=== PATIENT | female | born 1945 | race Caucasian/White ===

== ENCOUNTER → 2016-11-30 | Outpatient (CLI) | payer MEDICARE, BC | LOC: MAMO 14:41 | DX: Z12.31 Encounter for screening mammogram for malignant neoplasm of breast (principal) | CPT/HCPCS: G0202 ==

== ENCOUNTER → 2021-09-03 | Outpatient (CLI) | payer MEDICARE, BC ==
[~2021-09-03] MED LIST: LOSARTAN POTASS50 MG PO; OMNICEF 300 MG300 MG PO
== END ==
LOC: OPSV2 09:30
PROVIDERS: Anesthesiology
DX: Z01.818 Encounter for other preprocedural examination (principal); I10 Essential (primary) hypertension
CPT/HCPCS: 80048; 93005

== ENCOUNTER 2021-09-08 05:35 | Inpatient (IN) | payer MEDICARE, BC ==
[~2021-09-08] VITALS: Ht 162.6 cm; Wt 79.4 kg
[2021-09-08] MEDS ORDERED: NEOMYCIN SULFA500 MG PO (06:39)
[2021-09-08] MEDS ORDERED: METRONIDAZOLE500 MG PO (06:39)
[2021-09-09 07:07] LABS: HEMOGLOBIN 12.5 gm/dl (12.3-15.3); RED BLOOD COUNT 4.12 M/UL (4.00-5.10); WHITE BLOOD COUNT 8.2 K/UL (4.5-11.0)
== END 2021-09-11 15:43 | disposition home or self-care (01) | DRG 331 ==
LOC: OR 05:35 → EDSTATUS 07:30 → OR 07:30 → M/S 14:00 → OR 14:01 → M/S 09-11 15:43
PROVIDERS: ADMIT Surgery
PROC: 0DNU4ZZ Release Omentum, Percutaneous Endoscopic Approach (ICD-10-PCS; 2021-09-08)
PROC: 0DNW4ZZ Release Peritoneum, Percutaneous Endoscopic Approach (ICD-10-PCS; 2021-09-08)
PROC: 0DBF4ZZ Excision of Right Large Intestine, Percutaneous Endoscopic Approach (ICD-10-PCS; principal; 2021-09-08 07:30)
DX: K63.5 Polyp of colon (principal); N18.30 Chronic kidney disease, stage 3 unspecified; I12.9 Hypertensive chronic kidney disease with stage 1 through stage 4 chronic kidney disease, or unspecified chronic kidney disease; M54.59 Other low back pain; E66.9 Obesity, unspecified; Z20.822 Contact with and (suspected) exposure to COVID-19; Z85.038 Personal history of other malignant neoplasm of large intestine; Z88.6 Allergy status to analgesic agent; Z90.49 Acquired absence of other specified parts of digestive tract; Z98.890 Other specified postprocedural states; Z79.899 Other long term (current) drug therapy; Z80.0 Family history of malignant neoplasm of digestive organs; Z82.49 Family history of ischemic heart disease and other diseases of the circulatory system; Z82.61 Family history of arthritis; Z83.3 Family history of diabetes mellitus; Z80.3 Family history of malignant neoplasm of breast; Z68.30 Body mass index [BMI] 30.0-30.9, adult
CPT/HCPCS: 80048; 85025; J0690; J1100; J1170; J2001; J2405; J2704; J2710; J3010; J7030; J7040; J7120

== ENCOUNTER → 2021-09-25 | Outpatient (CLI) | payer MEDICARE, BC ==
[~2021-09-25] MED LIST changes: +METRONIDAZOLE500 MG PO; +NEOMYCIN SULFA500 MG PO
== END ==
LOC: LAB 10:43
DX: Z85.038 Personal history of other malignant neoplasm of large intestine (principal)
CPT/HCPCS: 36415; 82378